=== PATIENT | female | born 1965 | race Caucasian/White ===

== ENCOUNTER 2021-08-13 13:45 | Emergency (ER) | payer OTHER ==
[2021-08-13 14:04] VITALS: BP 124/88; PULSE 88; TEMP 98.6; BMI 21.3
[2021-08-13] MEDS ORDERED: MECLIZINE HCL 25 MG TABLET (FP) PO ONE (14:12)
[2021-08-13] MEDS ORDERED: METOCLOPRAMIDE HCL 10 MG TABLET (FP) PO ONE ×2 (14:12→14:24)
[2021-08-13] MEDS ORDERED: MECLIZINE HCL 25 MG TABLET (FP) ONE (14:25)
[2021-08-13] MEDS ORDERED: ACETAMINOPHEN 500 MG TABLET (FP) PO ONE (14:55)
[2021-08-13] MEDS ORDERED: ACETAMINOPHEN 500 MG TABLET (FP) ONE (15:03)
== END 2021-08-13 15:40 | disposition home or self-care (01) ==
LOC: FER 13:45
DX: S06.0X9A Concussion with loss of consciousness of unspecified duration, initial encounter (principal); W19.XXXA Unspecified fall, initial encounter
CPT/HCPCS: 70450-TC; 72125-TC; 99284-25

== ENCOUNTER 2024-02-08 14:55 | Emergency (ER) | payer OTHER ==
[2024-02-08 15:21] VITALS: RESP 16; BMI 22.3
[2024-02-08] MEDS ORDERED: ACETAMINOPHEN 325 MG TABLET (FP) ONE (16:45)
[2024-02-08] MEDS: ACETAMINOPHEN 325 MG TABLET (FP) PO ONE (16:50)
[2024-02-08] MEDS ORDERED: SIMETHICONE 80 MG TAB.CHEW (FP) ONE (18:53)
[2024-02-08] MEDS: SIMETHICONE 80 MG TAB.CHEW (FP) PO ONE (18:56)
[2024-02-08 19:28] VITALS: BP 162/92; PULSE 96; TEMP 98.8
== END 2024-02-08 19:28 | disposition home or self-care (01) ==
LOC: FER 14:55
DX: S60.222A Contusion of left hand, initial encounter (principal); R07.89 Other chest pain; W17.89XA Other fall from one level to another, initial encounter
CPT/HCPCS: 71046-TC-FY; 99283-25

== ENCOUNTER 2024-02-10 14:52 | Emergency (ER) | payer OTHER ==
[2024-02-10 15:01] VITALS: BP 158/86; PULSE 78; RESP 14; TEMP 98; BMI 22.3
[2024-02-10] MEDS ORDERED: ACETAMINOPHEN INJECTION 100 ML ONE (15:20)
[2024-02-10] MEDS: ACETAMINOPHEN 1000 MG/100 ML BAG IVPB ONE (15:39)
[2024-02-10 16:29] LABS: ALBUMIN 5.3 g/dl (3.4-5.0); BILIRUBIN,TOTAL 0.8 mg/dl (0.2-1); CALCIUM 10.5 mg/dl (8.5-10.1); CREATININE 0.8 mg/dl (0.6-1.3); POTASSIUM 4.5 mmol/L (3.5-5.1); TOT PROT 8.2 g/dl (6.4-8.2)
[2024-02-10 17:30] LABS: HEMATOCRIT 45.9 % (32.4-45.2); HEMOGLOBIN 14.8 G/dL (10.7-15.3); MCH 31.1 pg (25.7-33.7); MCHC 32.2 g/dl (32.0-36.0); MEAN CELL VOLUME 96.4 fl (80-96); MEAN PLT VOLUME 9.7 fl (7.5-11.1); PLATELET COUNT 329.9 10^3/uL (134-434); RBC 4.76 10^6/uL (3.60-5.2); RDW 13.9 % (11.6-15.6); WHITE BLOOD COUNT 5.6 10^3/uL (4.0-10.8)
[2024-02-10 17:46] LABS: PLATELET ESTIMATE ADEQUATE
[2024-02-10] MEDS: LIDOCAINE 5% TOPICAL PATCH TP ONE (18:28)
[2024-02-10] MEDS ORDERED: LIDOCAINE 5% TOPICAL PATCH ONE (18:28)
[2024-02-10] MEDS ORDERED: LIDOCAINE PATCH REMOVAL MC SCH (22:00)
== END 2024-02-10 20:15 | disposition home or self-care (01) ==
LOC: FER 14:52
PROC: 3E033NZ Introduction of Analgesics, Hypnotics, Sedatives into Peripheral Vein, Percutaneous Approach (ICD-10-PCS; principal; 2024-02-10)
DX: S22.42XA Multiple fractures of ribs, left side, initial encounter for closed fracture (principal); S92.515A Nondisplaced fracture of proximal phalanx of left lesser toe(s), initial encounter for closed fracture; S70.12XA Contusion of left thigh, initial encounter; R10.9 Unspecified abdominal pain; W01.0XXA Fall on same level from slipping, tripping and stumbling without subsequent striking against object, initial encounter
CPT/HCPCS: 36415; 71260-TC; 73660-TC-FY; 73660-TC-LT-FY; 74177-TC; 80053; 81003; 85027; 87086; 99285-25; J0131; Q9967